=== PATIENT | female | born 1975 | race Caucasian/White ===

== ENCOUNTER → 2016-12-08 | Outpatient (CLI) | payer BC ==
[~2016-12-08] MED LIST: CHOL2000 PO; HYDR-5688 PO; MULT-506 PO; MULT1CAP3 PO
== END | disposition home or self-care (01) ==
LOC: C.PAPS 16:56
PROVIDERS: ATTEND Obstetrics & Gynecology
DX: Z01.419 Encounter for gynecological examination (general) (routine) without abnormal findings (principal)

== ENCOUNTER 2017-04-24 23:29 | Emergency (ER) | payer BC ==
[~2017-04-24] VITALS: Ht 160 cm; Wt 82.0 kg
[~2017-04-24 23:29] MED LIST changes: -CHOL2000 PO; -HYDR-5688 PO; -MULT1CAP3 PO
[2017-04-24 23:33] VITALS: TEMP 36.4; Ht 160 cm; Wt 82.0 kg
[2017-04-24] MEDS ORDERED: MoRPHine SULFATE 4 MG/ML 1 ML CARP\\VIAL IV STA (23:43)
[2017-04-24] MEDS ORDERED: ONDANSETRON INJ 2 MG/ML 2 ML VIAL IV STA (23:43)
[2017-04-24] MEDS ORDERED: SODIUM CHLORIDE 0.9% 1000ML 1,000 ML IV STA (23:43)
[2017-04-24 23:59] LABS: BASO % 0.4 %; BASO ABS # 0.04 K/uL (0-0.2); COMPLETE YES; EOS % 2.6 %; HEMATOCRIT 39.4 % (37-47); IG% 0.3 %; LYMPH % 35.7 %; LYMPH ABS # 3.98 K/uL (1.2-3.4); MEAN CORPUSCULAR HEMOGLOBIN 30.4 pg (25-34); MEAN CORPUSCULAR HGB CONC 33.8 g/dl (32-36); MEAN PLATELET VOLUME 9.2 fL (7.4-10.4); MONO % 5.1 %; NEUT % 55.9 %; PLATELET COUNT 329 K/uL (130-400); RED BLOOD COUNT 4.38 M/uL (4.2-5.4); WHITE BLOOD COUNT 11.14 K/uL (4.8-10.8)
[2017-04-25 00:11] LABS: POINT OF CARE TROPONIN I < 0.030 ng/ml (0-0.045)
[2017-04-25 00:21] LABS: ALT/SGPT 35 U/L (12-78); AST/SGOT 27 U/L (15-37); BLOOD UREA NITROGEN 15 mg/dl (7-18); CALCIUM 8.6 mg/dl (8.5-10.1); CARBON DIOXIDE 27 mmol/L (21-32); CHLORIDE 105 mmol/L (98-107); CREATININE 0.83 mg/dl (0.60-1.20); GLUCOSE 104 mg/dl (70-99); POTASSIUM 3.4 mmol/L (3.5-5.1); SODIUM 142 mmol/L (136-145)
[2017-04-25 00:23] LABS: PREG INTERNAL NEGATIVE QC NEG CLEAR BACKGROUND; PREG INTERNAL POSITIVE QC POS CONTROL LINE
[2017-04-25 00:26] LABS: ALKALINE PHOSPHATASE 82 U/L (45-117)
[2017-04-25] MEDS ORDERED: OPTIRAY 320 IV PRN (00:30)
[2017-04-25] MEDS ORDERED: MULT1CAP3 PO (00:31)
[2017-04-25] MEDS ORDERED: CHOL2000 PO (00:31)
[2017-04-25] MEDS ORDERED: MoRPHine SULFATE 4 MG/ML 1 ML CARP\\VIAL IV STA (01:43)
--- NOTE | 2017-04-25 04:05 | EMERGENCY ROOM VISIT NOTE ---
History First contact with patient: 23:37 Chief Complaint: CHEST PAIN Stated Complaint: CHEST PAIN,HARD TIME BREATHING,RT SHOULDER PAIN History of Present Illness The patient is a 41 year old female who presents to the Emergency Room with complaints of chest pain and shortness of breath that is midsternal radiates to her right shoulder for the past several hours and started shortly after eating lunch today. Symptoms have gotten progressively worse. Currently 8 out of 10. Nothing makes it better or worse. There is a family history of heart disease and blood clots. Patient does not smoke. She has traveled recently. Patient denies fever, chills, cough, congestion, tobacco use, control, leg pain or swelling, abdominal pain, vomiting, diarrhea, back pain. Review of Systems See HPI for pertinent positives & negatives. A total of 10 systems reviewed and were otherwise negative. Past Medical/Surgical History Medical Problems: (1) No Known Active Medical Problems Surgical Problems: (1) H/O section Social History Smoking Status: Never Smoker Smokeless Tobacco Use: No Alcohol Use: occasionally Marital Status: Housing Status: lives with family Current/Historical Medications Scheduled Cholecalciferol (Vitamin D3), 1-2 CAP PO DAILY Multiple Vitamins W/ Minerals (Womens Multi), 1 CAP PO DAILY Allergies Coded Allergies: Erythromycin (Verified Allergy, Mild, 04/25/17) Physical Exam Vital Signs Date Time Temp Pulse Resp B/P (MAP) Pulse Ox O2 Delivery O2 Flow Rate FiO2 04/25/17 01:13 Room Air 04/25/17 01:12 80 18 127/79 99 Room Air 04/25/17 00:29 82 13 04/25/17 00:27 Room Air 04/24/17 23:59 84 17 100 04/24/17 23:53 97 04/24/17 23:33 36.4 101 18 136/84 100 Room Air Physical Exam VITALS: Vitals are noted on the nurse's note and reviewed by myself. Vital signs stable. GENERAL: Pleasant female anxious-appearing, in no acute distress, nondiaphoretic , well-developed well-nourished. SKIN: The skin was without rashes, erythema, edema, or bruising. There is no tenting of the skin. Capillary reflex less than 2 seconds. HEAD: Normocephalic atraumatic. EARS: External auditory canals clear, tympanic membranes pearly hargrove without erythema or effusion bilaterally. EYES: Pupils equal round and reactive to light and accommodation. Conjunctivae without injection, sclerae without icterus. Extraocular movements intact. NOSE: Patent, turbinates without inflammation or discharge. MOUTH: Mucous membranes moist. Pharynx without erythema or exudate. Uvula midline. Airway patent. Tongue does not deviate. NECK: Supple without nuchal rigidity. No lymphadenopathy. No thyromegaly. Cervical spine is nontender. No JVD. HEART: Regular rate and rhythm without murmurs gallops or rubs. Minimally Tender to palpation midsternal LUNGS: Clear to auscultation bilaterally without wheezes, rales or rhonchi. No dullness to percussion. No retractions or accessory muscle use. ABDOMEN: Positive bowel sounds x 4. Normal tympanic percussion. Soft, nontender, without masses or organomegaly. Sidhu sign negative. No guarding or rebound tenderness. MUSCULOSKELETAL: No muscle atrophy, erythema, or edema noted. NEURO: Patient was alert and oriented to person place and time. Normal sensation to light and sharp touch. No focal neurological deficits. Medical Decision & Procedures Laboratory Results 04/24/17 23:45 Red Blood Count 4.38, Mean Corpuscular Volume 90.0, Mean Corpuscular Hemoglobin 30.4, Mean Corpuscular Hemoglobin Concent 33.8, Mean Platelet Volume 9.2, Neutrophils (%) (Auto) 55.9, Lymphocytes (%) (Auto) 35.7, Monocytes (%) (Auto) 5.1, Eosinophils (%) (Auto) 2.6, Basophils (%) (Auto) 0.4, Neutrophils # (Auto) 6.23, Lymphocytes # (Auto) 3.98, Monocytes # (Auto) 0.57, Eosinophils # (Auto) 0.29, Basophils # (Auto) 0.04 04/24/17 23:45 Test 04/24/17 23:45 04/24/17 23:52 White Blood Count 11.14 K/uL (4.8-10.8) Red Blood Count 4.38 M/uL (4.2-5.4) Hemoglobin 13.3 g/dL (12.0-16.0) Hematocrit 39.4 % (37-47) Mean Corpuscular Volume 90.0 fL (80-100) Mean Corpuscular Hemoglobin 30.4 pg (25-34) Mean Corpuscular Hemoglobin Concent 33.8 g/dl (32-36) Platelet Count 329 K/uL (130-400) Mean Platelet Volume 9.2 fL (7.4-10.4) Neutrophils (%) (Auto) 55.9 % Lymphocytes (%) (Auto) 35.7 % Monocytes (%) (Auto) 5.1 % Eosinophils (%) (Auto) 2.6 % Basophils (%) (Auto) 0.4 % Neutrophils # (Auto) 6.23 K/uL (1.4-6.5) Lymphocytes # (Auto) 3.98 K/uL (1.2-3.4) Monocytes # (Auto) 0.57 K/uL (0.11-0.59) Eosinophils # (Auto) 0.29 K/uL (0-0.5) Basophils # (Auto) 0.04 K/uL (0-0.2) RDW Standard Deviation 42.6 fL (36.4-46.3) RDW Coefficient of Variation 13.0 % (11.5-14.5) Immature Granulocyte % (Auto) 0.3 % Immature Granulocyte # (Auto) 0.03 K/uL (0.00-0.02) Anion Gap 10.0 mmol/L (3-11) Est Creatinine Clear Calc Drug Dose 92.3 ml/min Estimated GFR () 103.0 Estimated GFR (Non- 88.8 BUN/Creatinine Ratio 18.0 (10-20) Calcium Level 8.6 mg/dl (8.5-10.1) Total Bilirubin 0.2 mg/dl (0.2-1) Direct Bilirubin < 0.1 mg/dl (0-0.2) Aspartate Amino Transf (AST/SGOT) 27 U/L (15-37) Alanine Aminotransferase (ALT/SGPT) 35 U/L (12-78) Alkaline Phosphatase 82 U/L (45-117) Troponin I < 0.015 ng/ml (0-0.045) Total Protein 7.6 gm/dl (6.4-8.2) Albumin 3.8 gm/dl (3.4-5.0) Lipase 113 U/L (73-393) Human Chorionic Gonadotropin, Qual NEG (NEG) Bedside D-Dimer > 450 ng/mlFEU (0-450) Bedside Troponin I < 0.030 ng/ml (0-0.045) Medications Administered Medications (Trade) Dose Ordered Sig/Melvina Route Start Time Stop Time Status Last Admin Dose Admin Morphine Sulfate (MoRPHine SULFATE INJ) 4 mg NOW STAT IV 04/24/17 23:43 04/24/17 23:46 DC 04/25/17 00:00 4 MG Ondansetron HCl (Zofran Inj) 4 mg NOW STAT IV 04/24/17 23:43 04/24/17 23:46 DC 04/25/17 00:00 4 MG Sodium Chloride 1,000 ml @ 999 mls/hr Q1H1M STAT IV 04/24/17 23:43 04/25/17 00:43 DC 04/25/17 00:04 999 MLS/HR Morphine Sulfate (MoRPHine SULFATE INJ) 4 mg NOW STAT IV 04/25/17 01:43 04/25/17 01:45 DC 04/25/17 03:27 4 MG ED Course Prior records/ancillary studies reviewed. Triage Nursing notes reviewed. Additional history obtained from family. The patient's history was concerning for chest pain. Differential diagnosis: Etiologies such as cardiac ischemia, aortic dissection, pulmonary embolism, pneumonia, pneumothorax, musculoskeletal, infections, pericarditis, myocarditis , esophageal rupture, gastrointestinal, as well as others were entertained. Physical examination: As above. ER treatment provided: Morphine, Zofran On reassessment the patient felt better. Diagnostic interpretation by me: The electrocardiogram was normal sinus, normal intervals, Q waves in lead 1 and aVL, no acute ST-T wave changes, rate of 105. Impression sinus tachycardia with Q waves in the lateral leads interpreted by myself. No old EKG The labs revealed negative troponin. Elevated d-dimer. Negative CTA. No leukocytosis Imaging studies: Chest x-ray with no acute consolidation, pneumothorax or free air per my interpretation CTA negative for PE Ultrasound concerning for gallbladder sludge and 2.2 similar stone. No cholecystitis per radiology Exam and history seem consistent with the biliary colic. Patient was advised to follow-up family care for further workup and outpatient hida scan. She is advised to avoid fatty foods and large meals. She is advised to return to the ER immediately for abdominal pain, fevers, vomiting, worsening signs or symptoms or as needed. Patient felt much better after being medicated as above. By the evaluation outlined above emergent etiologies such as cardiac ischemia, aortic dissection, pulmonary embolism, pneumonia, pneumothorax, pericarditis, myocarditis, gastrointestinal, as well as others were deemed relatively unlikely. The pt informed about the findings as listed above. All questions were answered and pleased with the treatment. Return instructions were outlined and the patient was discharged in stable condition. Outpatient prescription management: oxy IR, Zofran Referral: The patient was referred back to primary care physician for follow-up in 2 to 3 days for a recheck of the current condition. Case reviewed with my attending Medical Decision As above Impression Primary Impression: Biliary colic Departure Information Dispostion Home / Self-Care Condition GOOD Referrals No Doctor, Assigned (PCP) Patient Instructions [facility] Additional Instructions DO NOT drive, drink alcohol, operate machinery, or perform dangerous activities today. You were given medications in the ER that can affect your ability to safely function or operate a vehicle. Oxycodone (OxyIR) 5mg: Take 1-2 pills every four hours for breakthrough pain. Avoid alcohol, operating machinery or dangerous equipment, working on ladders or roofs, DRIVING, or situations where being under the influence may be dangerous. It is recommended to use an [id number] stool softener such as Colace, 100mg twice daily while taking this medication to avoid constipation. Avoid fatty foods and large meals. Avoid acidic foods. Recommend HIDA scan with family doctor. Rest and drink plenty of fluids as tolerated. Continue current medications. Avoid strenuous activities and anything that worsens your pain. Resume normal activities once your symptoms resolve. Return to the ER immediately for worsening or persistent chest pain, abdominal pain, black or blood in your stools, vomiting, fevers, chest pains, difficulty breathing, worsening of your condition, or as needed. Follow up with your primary physician in 2-3 days for a recheck of your current condition.
[2017-04-25] MEDS ORDERED: ONDANSETRON HOME PACK 4MG OD TAB PO ONE (04:15)
[2017-04-25] MEDS ORDERED: OXYCODONE IR HOME PACK PO ONE (04:15)
[2017-04-25 04:28] VITALS: BP 134/81; PULSE 85; O2SAT 100
--- NOTE | 2017-04-25 06:43 | DIAGNOSTIC IMAGING REPORT ---
Right upper quadrant ultrasound GALLBLADDER-ABD LIMITED CLINICAL HISTORY: epigastric pain, ? GB pain. Nausea. TECHNIQUE: Ultrasound COMPARISON STUDY: None FINDINGS: 2 cm gallstone. No pericholecystic fluid. Common bile duct 6 mm. Liver is uniform. Pancreas and right kidney are unremarkable. IMPRESSION: Gallstone with a small amount of gallbladder sludge. Normal caliber bile ducts. Electronically signed by: Rusty Courtney M.D. 04/25/2017 6:41 AM Dictated Date/Time: 04/25/2017 6:40 AM
--- NOTE | 2017-04-25 07:49 | DIAGNOSTIC IMAGING REPORT ---
CHEST ONE VIEW PORTABLE HISTORY: Atypical CHEST PAIN COMPARISON: Chest 02/01/2008. FINDINGS: Stable left hilar prominence. The heart is normal in size. No pleural effusions. No pneumothorax. No focal lung consolidations to suggest pneumonia. IMPRESSION: No significant change compared to the prior study. No acute process. Electronically signed by: Ishaan Guerrero M.D. 04/25/2017 7:48 AM Dictated Date/Time: 04/25/2017 7:47 AM
--- NOTE | 2017-04-25 08:03 | DIAGNOSTIC IMAGING REPORT ---
CHEST CTA for PULMONARY ARTERIES CT DOSE: 364.57 mGy.cm HISTORY: Chest pain dyspnea TECHNIQUE: Multiaxial CT images of the chest were performed following the intravenous administration of contrast to evaluate the pulmonary arteries. Maximal intensity projection images were also obtained. COMPARISON STUDY: None. FINDINGS: There is a normal caliber thoracic aorta with no evidence for dissection. There is no evidence for pulmonary embolus. No pleural effusions. No pneumothorax. The liver and spleen are unremarkable. No mediastinal or hilar lymphadenopathy. The central airways are patent. The lungs are clear. Mild prominence of the central pulmonary vasculature. IMPRESSION: 1. Study is negative for pulmonary embolus. 2. Mild prominence of the central pulmonary vasculature Electronically signed by: Rusty Courtney M.D. 04/25/2017 8:01 AM Dictated Date/Time: 04/25/2017 7:58 AM
== END 2017-04-25 04:30 | disposition home or self-care (01) ==
LOC: C.EDB 23:32 → C.EDA 04-25 04:30
DX: K80.50 Calculus of bile duct without cholangitis or cholecystitis without obstruction (principal); Z88.3 Allergy status to other anti-infective agents; Z82.49 Family history of ischemic heart disease and other diseases of the circulatory system; Z83.2 Family history of diseases of the blood and blood-forming organs and certain disorders involving the immune mechanism

== ENCOUNTER 2017-05-04 06:45 | Day surgery (SDC) | payer BC ==
[~2017-05-04] VITALS: Ht 160 cm; Wt 77.5 kg
[~2017-05-04 06:45] MED LIST changes: +CEFAZOLIN 2000 MG/60 ML D5W IV SCH; +CHOL2000 PO; +LACTATED RINGER'S 1000ML 1,000 ML IV SCH; -MULT-506 PO; +MULT1CAP3 PO
[2017-05-04 06:55] VITALS: BP 108/61; PULSE 76; TEMP 36.8; O2SAT 99; Ht 160 cm; Wt 77.5 kg
[2017-05-04] MEDS ORDERED: ONDANSETRON INJ 2 MG/ML 2 ML VIAL IV PRN ×2 (07:15→09:45)
[2017-05-04] MEDS ORDERED: EpHEDrine SULFATE INJ 50 MG/ML AMP IV PRN (07:15)
[2017-05-04] MEDS ORDERED: ATROPINE SULFATE 0.1 MG/ML 5ML SYR IV PRN (07:15)
[2017-05-04] MEDS ORDERED: SCOPOLAMINE 1.5 MG TDSY TD ONE (07:30)
[2017-05-04] MEDS ORDERED: PROPOFOL IV EMULSION 10 MG/ML 20 ML VIAL IV ONE (07:39)
[2017-05-04] MEDS ORDERED: DEXAMETHASONE SOD INJ 4 MG/ML VIAL ONE (07:39)
[2017-05-04] MEDS ORDERED: ONDANSETRON INJ 2 MG/ML 2 ML VIAL ONE (07:39)
[2017-05-04] MEDS ORDERED: GLYCOPYRROLATE INJ 0.2 MG/ML VIAL ONE (07:39)
[2017-05-04] MEDS ORDERED: LIDOCAINE HCL 2% 2 ML VIAL (20MG/ML) ONE (07:39)
[2017-05-04] MEDS ORDERED: ROCURONIUM BROMIDE 10 MG/ML 5 ML VIAL ONE (07:39)
[2017-05-04] MEDS ORDERED: FENTANYL CITRATE INJ 50 MCG/1 ML 2 ML VIAL ONE ×2 (07:39)
[2017-05-04] MEDS ORDERED: MIDAZOLAM HCL 1 MG/ML 2ML VIAL ONE (07:39)
[2017-05-04] MEDS ORDERED: NEOSTIGMINE METHYLSULFATE 5 MG/5 ML SYR ONE (07:39)
[2017-05-04] MEDS ORDERED: HYDR-5688 PO (08:14)
--- NOTE | 2017-05-04 08:15 | History & Physical Bridge Note ---
H&P Re-Evaluation Bridge Note: I have examined the patient, reviewed the History & Physical and in the interval since the performance of the History & Physical I have noted the following changes of clinical significance: No changes noted
--- NOTE | 2017-05-04 08:16 | Discharge Instructions ---
Discharge Instructions Date of Service May 04, 2017. Visit Reason for Visit: Symptomatic Cholelithiasis Discharge Discharge Diagnosis / Problem: laparoscopic cholecystectomy Discharge Goals Goal(s): Decrease discomfort Activity Recommendations Activity Limitations: as noted below Lifting Limitations: no more than 10 pounds Shower/Bathe: no limitations (ok to shower, no swimming for 1 week) Driving or Machine Use: resume 3 days after discharge (if not taking Talmage) Anesthesia . Post Anesthesia Instructions: If you have had General Anesthesia or IV Sedation: * Do not drive today. * Resume driving when surgeon permits. * Do not make important decisions or sign legal documents today. * Call surgeon for: 1. Temperature elevations greater than 101 degrees F. 2. Uncontrollable pain. 3. Excessive bleeding. 4. Persistent nausea and vomiting. 5. Medication intolerance (nausea, vomiting or rash). * For nausea and vomiting use only clear liquids such as: tea, soda, bouillon until nausea subsides, then gradually increase diet as tolerated. * If you have any concerns or questions, call your surgeon's office. If physician is unavailable and it is an emergency, call 911 or go to the nearest emergency room. . Instructions / Follow-Up Instructions / Follow-Up Dr. Jose in 2 weeks, call office at [phone] for any questions or concerns Diet Recommendations Recommended Home Diet: no limitations Pending Studies Studies pending at discharge: yes List of pending studies: pathology Medical Emergencies . Who to Call and When: Medical Emergencies: If at any time you feel your situation is an emergency, please call 911 immediately. . Non-Emergent Contact Non-Emergency issues call your: Surgeon Call Non-Emergent contact if: you have a fever, temperature is above 101.5, your pain is not controlled, wound has increased redness, you have any medication questions . . "Provider Documentation" section prepared by Jose Avelar. .
[2017-05-04] MEDS ORDERED: BUPIVACAINE 0.5 % 5 MG/1 ML MPF 30ML VIAL ONE (08:21)
[2017-05-04] MEDS ORDERED: METOCLOPRAMIDE HCL INJ 5 MG/ML 2 ML VIAL ONE (09:19)
[2017-05-04] MEDS ORDERED: KETOROLAC TROMETHAMINE 30 MG/ML VIAL ONE (09:19)
[2017-05-04] MEDS ORDERED: LACTATED RINGER'S 1000ML 1,000 ML IV SCH (09:34)
--- NOTE | 2017-05-04 09:40 | [facility] Operative Report ---
Operative Report Operative Date May 04, 2017. Pre-Operative Diagnosis Cholelithiasis Post-Operative Diagnosis same Procedure(s) Performed lap kiki Surgeon Dr Jose [employer] Surgeon(s) Jose Avelar PA-C Estimated Blood Loss 5ML Findings normal anatomy other than gallstones Specimens A. Gallbladder Anesthesia get Complication(s) None Disposition Recovery Room / PACU I attest to the content of the Intraoperative Record and any orders documented therein. Any exceptions are noted below.
[2017-05-04] MEDS: FENTANYL CITRATE INJ 50 MCG/1 ML 2 ML VIAL IV PRN ×4 (09:42→09:57)
[2017-05-04] MEDS ORDERED: MoRPHine SULFATE 4 MG/ML 1 ML CARP\\VIAL IV PRN (09:45)
[2017-05-04] MEDS ORDERED: HYDROCODONE/ACETAMOPHEN 5/325MG TAB PO PRN ×2 (09:45)
--- NOTE | 2017-05-04 09:47 | OPERATIVE REPORT ---
DATE OF OPERATION: 05/04/2017 PREOPERATIVE DIAGNOSIS: Symptomatic cholelithiasis. POSTOPERATIVE DIAGNOSIS: Same. PROCEDURE: Laparoscopic cholecystectomy. SURGEON: Dr. Jose. DIRECTOR [employer] SALES: Ward Avelar PA-C. ESTIMATED BLOOD LOSS: Approximately 5 mL COMPLICATIONS: No immediate. ANESTHESIA: General. The patient tolerated the procedure well. OPERATIVE NOTE: After informed consent was obtained, the patient was taken to the operating suite and placed in supine position. After successful intubation, the abdomen was sterilely prepped and draped in usual fashion. Supraumbilical incision made with an 11 blade scalpel and carried down through soft tissue using electrocautery. The anterior rectus fascia was opened using electrocautery and two #0 Vicryl stay sutures were placed. Peritoneum was elevated with hemostats and incised under direct vision using a Metzenbaum scissor. A finger sweep was performed and a 12 mm Armani trocar was placed. The abdomen was insufflated to 18 mmHg. The patient was placed in a reverse Trendelenburg position, slightly airplaned to the left. The camera was inserted. No gross abnormalities were identified. We placed a subxiphoid 5 mm port and 2 right upper quadrant 5 mm ports under direct vision. The gallbladder was grasped and elevated superiorly and laterally. A Maryland dissector was used to take down adhesions from the neck of the gallbladder. The [place] was then used to skeletonize the cystic duct. We clipped it twice proximally and once distally and transected it with a laparoscopic scissors. In similar fashion, the cystic artery was identified, skeletonized, clipped and divided as well. Electrocautery was used to remove the gallbladder from the gallbladder fossa. It was removed intact and placed into an EndoCatch bag. Several small bleeding points in the gallbladder fossa were controlled using electrocautery. A thorough irrigation was performed. There was no evidence of bile leak and adequate hemostasis at the end of the procedure. We did look around one final time and lifted up the left lobe of the liver. Again, no gross visible abnormalities were seen. The trocars were all removed as well as the gallbladder. We desufflated the abdomen. The fascia of the camera port was closed using 0 Vicryl in a [id number] fashion. All the wounds were irrigated and closed using 4-0 Monocryl. 0.5% Marcaine was injected around the incisions for postoperative analgesia and skin glue used as a dressing. The patient was awakened, extubated, and transferred to recovery in stable condition. I attest to the content of the Intraoperative Record and any orders documented therein. Any exception s are noted below.
[2017-05-04] MEDS: HYDROmorphone INJ 1 MG/ML SYR IV PRN ×4 (10:02→10:17)
--- NOTE | 2017-05-04 10:38 | Anesthesiology Progress Note ---
Anesthesia Post Op Note Date & Time May 04, 2017 at 10:38 Vital Signs Pain Intensity: 4 Vital Signs Past 12 Hours Date Time Temp Pulse Resp B/P (MAP) Pulse Ox O2 Delivery O2 Flow Rate FiO2 05/04/17 10:25 61 12 114/71 100 Room Air 05/04/17 10:15 68 18 118/60 99 Room Air 05/04/17 10:05 69 12 120/73 98 Room Air 05/04/17 09:55 55 12 126/73 100 Mask 10 05/04/17 09:45 56 10 128/76 100 Mask 10 05/04/17 09:35 36.2 60 14 134/78 100 Mask 10 05/04/17 06:55 36.8 76 18 108/61 (77) 99 Room Air Notes Mental Status: alert / awake / arousable, participated in evaluation Pt Amnestic to Procedure: Yes Nausea / Vomiting: adequately controlled Pain: adequately controlled Airway Patency, RR, SpO2: stable & adequate BP & HR: stable & adequate Hydration State: stable & adequate Anesthetic Complications: no major complications apparent
[2017-05-04 11:45] VITALS: BP 104/68; PULSE 78; TEMP 36.5; O2SAT 100
== END 2017-05-04 12:10 | disposition home or self-care (01) ==
LOC: C.ACU 06:45
PROVIDERS: ATTEND Surgery
DX: K80.10 Calculus of gallbladder with chronic cholecystitis without obstruction (principal); Z82.49 Family history of ischemic heart disease and other diseases of the circulatory system; Z80.3 Family history of malignant neoplasm of breast; Z87.891 Personal history of nicotine dependence

== ENCOUNTER → 2017-08-14 | Outpatient (CLI) | payer BC ==
[~2017-08-14] MED LIST changes: -CEFAZOLIN 2000 MG/60 ML D5W IV SCH; +HYDR-5688 PO; -LACTATED RINGER'S 1000ML 1,000 ML IV SCH
--- NOTE | 2017-08-14 12:35 | MAMMOGRAPHY REPORT ---
BILATERAL DIGITAL SCREENING MAMMOGRAM TOMOSYNTHESIS WITH CAD: 08/14/2017 CLINICAL HISTORY: Routine screening. Patient has no complaints. TECHNIQUE: Breast tomosynthesis in addition to standard 2D mammography was performed. Current study was also evaluated with a Computer Aided Detection (CAD) system. COMPARISON: Comparison is made to exams dated: 05/04/2016 mammogram, 04/28/2015 mammogram, 03/11/2014 m ammogram, and 02/18/2013 mammogram - [facility]. BREAST COMPOSITION: There are scattered areas of fibroglandular density in both breasts. FINDINGS: There are stable intramammary lymph nodes in each upper outer quadrant. No suspicious mass , architectural distortion or cluster of microcalcifications is seen. IMPRESSION: ACR BI-RADS CATEGORY 1: NEGATIVE There is no mammographic evidence of malignancy. A 1 year screening mammogram is recommended. The pa tient will receive written notification of the results. Approximately 10% of breast cancers are not detected with mammography. A negative mammographic report should not delay biopsy if a clinically suggestive mass is present. Margret Bear M.D. ay/:08/14/2017 09:57:47 [employer]: Tati Renee RT(R)(M)(BD), [facility] letter sent: Normal 1/2 BI-RADS Code: ACR BI-RADS Category 1: Negative
== END | disposition home or self-care (01) ==
LOC: C.MAMM 08:44
PROVIDERS: ATTEND Obstetrics & Gynecology
DX: Z12.31 Encounter for screening mammogram for malignant neoplasm of breast (principal)

== ENCOUNTER 2018-02-18 16:57 | Emergency (ER) | payer BC ==
[~2018-02-18] VITALS: Ht 160 cm; Wt 71.1 kg
[~2018-02-18 16:57] MED LIST changes: -HYDR-5688 PO
[2018-02-18 17:01] VITALS: TEMP 36.6; Ht 160 cm; Wt 71.1 kg
--- NOTE | 2018-02-18 17:09 | EMERGENCY ROOM VISIT NOTE ---
History Report prepared by Jennifer: Talha Ashton Under the Supervision of: Dr. Eddie Eisenberg M.D. First contact with patient: 17:07 Chief Complaint: CHEST PAIN Stated Complaint: CHEST PAINS, PRESSURE History of Present Illness The patient is a 42 year old female who presents to the Emergency Room with complaints of waxing and waning pain and pressure in her chest beginning 3 days ago. The patient rates her pain levels as an 8/10 during an episode, but rates her current pain at 5/10. The patient reports that during episodes she feels the pain radiating down her left arm, shortness of breath, and lightheadedness. She notes that the pain worsens with eating, and states that when she eats she feels nauseas and develops pressure within her chest and abdomen leading her to vomit. The patient states that each episode can last from a few minutes up to one hour. She reports that she had her gallbladder removed in April, and has not had any complications with the surgery since. The patient states that that time she was supposed to follow-up with cardiology status post gallbladder removal, however she did not do so. She denies drinking alcohol, any chance of , coughing up blood, taking any hormonal medication, vaginal bleeding or discharge, or any episodes of fainting. She also reports feeling a tender lump between her breasts which she is concerned about. No discharge from the lump, no nipple discharge or breast pain. Source of History: patient Onset: 3 days ago Position: chest, arm (left) Symptom Intensity: 8/10 Timing: waxes/wanes Modifying Factors (Worsening): eating Modifying Factors (Relieving): other (vomiting) Associated Symptoms: + chest pain (pressure), + SOB, + nausea, + vomiting, No LOC, No cough, No urinary symptoms Note: Associated Symptoms:: Lightheadedness Review of Systems See HPI for pertinent positives and negatives. A total of ten systems were reviewed and were otherwise negative. Past Medical & Surgical Medical Problems: (1) No Known Active Medical Problems Surgical Problems: (1) H/O section Family History FH: breast cancer FH: melanoma Social History Smoking Status: Former Smoker Alcohol Use: occasionally Marital Status: Housing Status: lives with family Current/Historical Medications Scheduled Cholecalciferol (Vitamin D3), 2,000 UNITS PO DAILY Multiple Vitamins W/ Minerals (Womens Multi), 1 CAP PO DAILY Allergies Coded Allergies: Erythromycin (Verified Allergy, Mild, 02/18/18) Physical Exam Vital Signs Date Time Temp Pulse Resp B/P (MAP) Pulse Ox O2 Delivery O2 Flow Rate FiO2 02/18/18 21:58 63 18 117/65 98 02/18/18 20:30 66 18 124/71 99 Room Air 02/18/18 19:29 64 18 102/67 99 Room Air 02/18/18 18:30 67 22 105/66 98 Room Air 02/18/18 17:57 72 02/18/18 17:51 73 17 118/75 100 02/18/18 17:48 99 Room Air 02/18/18 17:48 99 Room Air 02/18/18 17:01 36.6 126 19 124/76 100 Physical Exam Physical Exam GENERAL: She is oriented to person, place, and time. She appears well- developed and well-nourished. She does not appear distressed. ____ HENT: Exam performed. Head: Normocephalic and atraumatic. Right Ear: External ear normal. No mastoid tenderness. Left Ear: External ear normal. No mastoid tenderness. Mouth/Throat: The oropharynx is clear and moist. No trismus in the jaw. No dental abscesses or uvula swelling. No oropharyngeal exudate or tonsillar abscesses. ____ EYES: Conjunctivae and EOM are normal. Pupils are equal, round, and reactive to light. Right eye exhibits no discharge. Left eye exhibits no discharge. No scleral icterus. ____ NECK: Normal range of motion. Neck supple. No JVD present. No spinous process tenderness present. No carotid bruit present. No rigidity. No tracheal deviation and normal range of motion present. No Brudzinski's sign and no Kernig 's sign noted. ____ CV: Normal rate, regular rhythm, normal heart sounds and intact distal pulses. There is no peripheral edema. Palpable radial pulses bue. ____ PULM/CHEST: Effort normal and breath sounds normal. No respiratory distress. No stridor. She has no wheezes. She has no rales. Chest Wall: She exhibits no tenderness. ____ ABD: The abdomen is soft. Bowel sounds are normal. She has no distension. No mass is present. There is no tenderness. There is no rebound, no guarding, no Sidhu's sign and no tenderness at McBurney's point. Rovsig negative MUSC/SKEL: Normal range of motion. There is no peripheral edema, tenderness or deformity. LYMPH: No cervical adenopathy. ____ NEURO: She is alert and oriented to person, place, and time. She has normal strength. No cranial nerve deficit or sensory deficit. Coordination and gait normal. GCS eye subscore is 4. GCS verbal subscore is 5. GCS motor subscore is 6. Cerebellar tests wnl. ____ SKIN: Skin is warm and dry. She is not diaphoretic. Small lipoma on her anterior chest wall, no overlying skin changes including no cellulitis or erythema, no fluctuance, no rash or vesicles.____ PSYCH: She has a normal mood and affect. Her behavior is normal. Judgment and thought content normal. ____ Medical Decision & Procedures ER Provider Diagnostic Interpretation: Radiology results as stated below per my review and radiologist interpretation: ABDOMEN 2VIEW W/PA CHEST RTN CLINICAL HISTORY: Atypical chest pain. Generalized abdominal pain. Vomiting. COMPARISON STUDY: Chest x-ray dated 04/24/2017 FINDINGS: The erect chest reveals no free intraperitoneal air. There is no focal pulmonary consolidation. Erect and supine views the abdomen reveal no abnormally dilated loops of large or small bowel. There are no transition zones to indicate bowel obstruction. There are surgical clips within the right upper quadrant consistent with a prior cholecystectomy. IMPRESSION: No evidence of bowel obstruction. No evidence of free air. Electronically signed by: Naveed Camara M.D. 02/18/2018 7:29 PM Dictated Date/Time: 02/18/2018 7:28 PM Laboratory Results 02/18/18 17:55 Red Blood Count 3.97, Mean Corpuscular Volume 92.4, Mean Corpuscular Hemoglobin 31.7, Mean Corpuscular Hemoglobin Concent 34.3, Mean Platelet Volume 9.1, Neutrophils (%) (Auto) 55.2, Lymphocytes (%) (Auto) 35.8, Monocytes (%) (Auto) 5.0, Eosinophils (%) (Auto) 3.3, Basophils (%) (Auto) 0.4, Neutrophils # (Auto) 4.17, Lymphocytes # (Auto) 2.70, Monocytes # (Auto) 0.38, Eosinophils # (Auto) 0.25, Basophils # (Auto) 0.03 02/18/18 17:55 Test 02/18/18 17:55 02/18/18 21:00 White Blood Count 7.55 K/uL (4.8-10.8) Red Blood Count 3.97 M/uL (4.2-5.4) Hemoglobin 12.6 g/dL (12.0-16.0) Hematocrit 36.7 % (37-47) Mean Corpuscular Volume 92.4 fL (80-100) Mean Corpuscular Hemoglobin 31.7 pg (25-34) Mean Corpuscular Hemoglobin Concent 34.3 g/dl (32-36) Platelet Count 316 K/uL (130-400) Mean Platelet Volume 9.1 fL (7.4-10.4) Neutrophils (%) (Auto) 55.2 % Lymphocytes (%) (Auto) 35.8 % Monocytes (%) (Auto) 5.0 % Eosinophils (%) (Auto) 3.3 % Basophils (%) (Auto) 0.4 % Neutrophils # (Auto) 4.17 K/uL (1.4-6.5) Lymphocytes # (Auto) 2.70 K/uL (1.2-3.4) Monocytes # (Auto) 0.38 K/uL (0.11-0.59) Eosinophils # (Auto) 0.25 K/uL (0-0.5) Basophils # (Auto) 0.03 K/uL (0-0.2) RDW Standard Deviation 45.7 fL (36.4-46.3) RDW Coefficient of Variation 13.5 % (11.5-14.5) Immature Granulocyte % (Auto) 0.3 % Immature Granulocyte # (Auto) 0.02 K/uL (0.00-0.02) Prothrombin Time 10.0 SECONDS (9.0-12.0) Prothromb Time International Ratio 1.0 (0.9-1.1) Activated Partial Thromboplast Time 26.6 SECONDS (21.0-31.0) Partial Thromboplastin Ratio 1.0 D-Dimer 350 ug/L FEU (0-500) Urine Color DK YELLOW Urine Appearance CLEAR (CLEAR) Urine pH 7.5 (4.5-7.5) Urine Specific [place] 1.009 (1.000-1.030) Urine Protein NEG (NEG) Urine Glucose (UA) NEG (NEG) Urine Ketones NEG (NEG) Urine Occult Blood 2+ (NEG) Urine Nitrite NEG (NEG) Urine Bilirubin NEG (NEG) Urine Urobilinogen NEG (NEG) Urine Leukocyte Esterase NEG (NEG) Urine WBC (Auto) 0 /hpf (0-5) Urine RBC (Auto) 0-4 /hpf (0-4) Urine Hyaline Casts (Auto) 1-5 /lpf (0-5) Urine Epithelial Cells (Auto) 10-20 /lpf (0-5) Urine Bacteria (Auto) NEG (NEG) Urine Test NEG (NEG) Anion Gap 5.0 mmol/L (3-11) Est Creatinine Clear Calc Drug Dose 72.9 ml/min Estimated GFR () 84.7 Estimated GFR (Non- 73.1 BUN/Creatinine Ratio 10.5 (10-20) Calcium Level 9.1 mg/dl (8.5-10.1) Total Bilirubin 0.2 mg/dl (0.2-1) Direct Bilirubin < 0.1 mg/dl (0-0.2) Aspartate Amino Transf (AST/SGOT) 13 U/L (15-37) Alanine Aminotransferase (ALT/SGPT) 20 U/L (12-78) Alkaline Phosphatase 71 U/L (45-117) Total Protein 7.5 gm/dl (6.4-8.2) Albumin 3.8 gm/dl (3.4-5.0) Lipase 100 U/L (73-393) Troponin I < 0.015 ng/ml (0-0.045) Laboratory results reviewed by me Medications Administered Medications (Trade) Dose Ordered Sig/Melvina Route Start Time Stop Time Status Last Admin Dose Admin Ondansetron HCl (Zofran Inj) 4 mg NOW STAT IV 02/18/18 17:18 02/18/18 17:23 DC 02/18/18 18:20 4 MG Sodium Chloride 1,000 ml @ 999 mls/hr Q1H1M STAT IV 02/18/18 17:18 02/18/18 18:18 DC 02/18/18 18:19 999 MLS/HR Aspirin (Aspirin Chew) 324 mg NOW STAT PO 02/18/18 17:18 02/18/18 17:23 DC 02/18/18 18:20 324 MG Nitroglycerin (Nitrostat Tab) 0.4 mg Q5M PRN SL 02/18/18 17:30 02/18/18 22:29 DC 02/18/18 18:21 0.4 MG Potassium Chloride (Klor-Con M10) 20 meq NOW STAT PO 02/18/18 20:47 02/18/18 20:48 DC 02/18/18 21:02 20 MEQ ECG Per My Interpretation Indication: chest pain Rate (beats per minute): 105 Rhythm: sinus tachycardia Findings: other (pr, qrs, and qtc intervals within normal limits. No ST elevation or depression. ) ED Course 1706: The patient was evaluated in room C5. A complete history and physical exam was performed. 1717: Ordered Aspirin 324 mg PO, Sodium Chloride 1000 ml @ 999 mls/hr IV, and Zofran 4 mg IV. 1729: Ordered Nitroglycerin 0.4mg SL. 1947: I re-evaluated the patient. her vital signs are stable. The patient's EKG imaging and labs including D-Dimer are negative. I offered the patient inpatient observation to rule out ACS. The patient declined stating she would prefer to not be placed in the hospital overnight and to follow-up outpatient if possible. I will repeat 3 hour troponin. If negative, the patient will follow up with her PCP and cardiology. If positive, the patient will be admitted. The patient is in agreement with this treatment plan. Medical Decision vital signs are stable. The patient's EKG imaging and labs including D-Dimer are negative. I offered the patient inpatient observation to rule out ACS. The patient declined stating she would prefer to not be placed in the hospital overnight and to follow-up outpatient if possible. I will repeat 3 hour troponin. If negative, the patient will follow up with her PCP and cardiology. If positive, the patient will be admitted. The patient is in agreement with this treatment plan. Medication Reconcilliation Current Medication List: was personally reviewed by me Blood Pressure Screening Patient's blood pressure: Normal blood pressure Impression Primary Impression: Chest pain, unspecified Scribe Attestation The scribe's documentation has been prepared under my direction and personally reviewed by me in its entirety. I confirm that the note above accurately reflects all work, treatment, procedures, and medical decision making performed by me. The chart was completed utilizing [employer] Speech voice recognition software. Grammatical errors, random word insertions, pronoun errors, and incomplete sentences are an occasional consequence of this system due to software limitations, ambient noise, and hardware issues. Any formal questions or concerns about the content, text, or information contained within the body of this dictation should be directly addressed to the physician for clarification. Departure Information Referrals Ron Leong DO (PCP) Patient Instructions My [facility] Problem Qualifiers Primary Impression: Chest pain, unspecified Chest pain type: unspecified Qualified Codes: R07.9 - Chest pain, unspecified
[2018-02-18] MEDS ORDERED: SODIUM CHLORIDE 0.9% 1000ML 1,000 ML IV STA (17:18)
[2018-02-18] MEDS ORDERED: ASPIRIN 81 MG CHEW PO STA (17:18)
[2018-02-18] MEDS ORDERED: ONDANSETRON INJ 2 MG/ML 2 ML VIAL IV STA (17:18)
[2018-02-18] MEDS ORDERED: NITROGLYCERIN 0.4 MG SL PER TAB CHARGE SL PRN (17:30)
[2018-02-18 17:48] VITALS: O2SAT 99
[2018-02-18 18:10] LABS: BASO % 0.4 %; BASO ABS # 0.03 K/uL (0-0.2); EOS % 3.3 %; EOS ABS # 0.25 K/uL (0-0.5); HEMATOCRIT 36.7 % (37-47); HEMOGLOBIN 12.6 g/dL (12.0-16.0); IG# 0.02 K/uL (0.00-0.02); LYMPH % 35.8 %; MEAN CELL VOLUME 92.4 fL (80-100); MEAN CORPUSCULAR HEMOGLOBIN 31.7 pg (25-34); MEAN CORPUSCULAR HGB CONC 34.3 g/dl (32-36); MEAN PLATELET VOLUME 9.1 fL (7.4-10.4); MONO ABS # 0.38 K/uL (0.11-0.59); NEUT % 55.2 %; NEUT ABS # 4.17 K/uL (1.4-6.5); PLATELET COUNT 316 K/uL (130-400); RED CELL DISTRIBUTION WIDTH CV 13.5 % (11.5-14.5); RED CELL DISTRIBUTION WIDTH SD 45.7 fL (36.4-46.3); WHITE BLOOD COUNT 7.55 K/uL (4.8-10.8)
[2018-02-18 18:20] LABS: PTT PATIENT 26.6 SECONDS (21.0-31.0)
[2018-02-18 18:33] LABS: ALBUMIN 3.8 gm/dl (3.4-5.0); ALT/SGPT 20 U/L (12-78); BLOOD UREA NITROGEN 10 mg/dl (7-18); CALCIUM 9.1 mg/dl (8.5-10.1); CARBON DIOXIDE 30 mmol/L (21-32); CREATININE 0.97 mg/dl (0.60-1.20); GLUCOSE 82 mg/dl (70-99); LIPASE 100 U/L (73-393); POTASSIUM 3.3 mmol/L (3.5-5.1); SODIUM 140 mmol/L (136-145)
[2018-02-18 18:38] LABS: ALKALINE PHOSPHATASE 71 U/L (45-117); AST/SGOT 13 U/L (15-37); TOTAL PROTEIN 7.5 gm/dl (6.4-8.2)
--- NOTE | 2018-02-18 19:31 | DIAGNOSTIC IMAGING REPORT ---
ABDOMEN 2VIEW W/PA CHEST RTN CLINICAL HISTORY: Atypical chest pain. Generalized abdominal pain. Vomiting. COMPARISON STUDY: Chest x-ray dated 04/24/2017 FINDINGS: The erect chest reveals no free intraperitoneal air. There is no focal pulmonary consolidation. Erect and supine views the abdomen reveal no abnormally dilated loops of large or small bowel. There are no transition zones to indicate bowel obstruction. There are surgical clips within the right upper quadrant consistent with a prior cholecystectomy. IMPRESSION: No evidence of bowel obstruction. No evidence of free air. Electronically signed by: Naveed Camara M.D. 02/18/2018 7:29 PM Dictated Date/Time: 02/18/2018 7:28 PM
[2018-02-18] MEDS ORDERED: POTASSIUM CHLORIDE 10 MEQ TABCR PO STA (20:47)
[2018-02-18 21:58] VITALS: BP 117/65; PULSE 63; O2SAT 98
--- NOTE | 2018-02-18 22:24 | EMERGENCY ROOM VISIT NOTE ---
ED Visit Note First contact with patient: 20:23 I was asked by Dr. Eisenberg to follow-up on blood work for this patient. She has a troponin pending. Upon reevaluation at approximately 2140, the patient was resting comfortably in bed. She was alert and oriented 3 in no apparent distress. Her troponin was reviewed and negative. She felt comfortable being discharged home Discharge instructions were reviewed, and she was discharged in good condition
== END 2018-02-18 21:58 | disposition home or self-care (01) ==
LOC: C.EDB 16:58 → C.EDC 21:58
DX: R07.9 Chest pain, unspecified (principal); Z90.49 Acquired absence of other specified parts of digestive tract; Z80.3 Family history of malignant neoplasm of breast; Z87.891 Personal history of nicotine dependence; Z88.1 Allergy status to other antibiotic agents